=== PATIENT | male | born 1960 | race Caucasian/White ===

== ENCOUNTER 2019-09-30 15:22 | Emergency (ER) | payer BC ==
[~2019-09-30] VITALS: Ht 180.3 cm; Wt 101.2 kg
[2019-09-30 15:48] VITALS: BP 143/78
--- NOTE | 2019-09-30 16:14 | Emergency Department Note ---
History of Present Illnes History of Present Illness Chief Complaint: Hypertension History of Present Illness This is a 59 year old Other male arrives to the ED after he noticed blood pres sure was high at home. Patient denies any complaints and states his blood pressure fluctuates goes to the doctor's office but couldn't afford the ivf embryologist co-pay and decided to come to the ER. . Chief Complaint Comment STATES HE WENT TO PCP FOR LAB WORK BUT COULD NOT AFFORD THE LAB WORK; WENT HOME CHECKED BP AND SAYS IT WAS HIGH AND THAT HIS HR READ 170'S ON HIS MACHINE STATES MAYBE THE MACHINE IS OFF STATES HE DOES NOT FEEL BAD DENIES CP/SOB DENIES ALL OTHER COMPLAINTS TAKES BESYLATE 10 MG PO IN THE AM AND MEDOXIMIL 40 MG PO HS STATES HE TOOK BESYLATE TODAY STATES HE'S CUT DOWN ON SMOKING AND IS DOWN TO 1 PK/CIGARETTES/DAY AND STOPPED DRINKING SEEN BY DR PERAZA Historian: Patient Arrival Mode: Car Onset quality: sudden Progression: resolved Past Medical/Family History Physician Review I have reviewed the patient's past medical and family history. Any updates have been documented here. Past Medical History Recent Fever: No Clinical Suspicion of Infectio: No New/Unexplained Change in Ment: No Past Medical History: Hypertension Past Surgical History: None Social History Smoking Cessation: Current every day smoker Counseling Performed: No Alcohol Use: None Any Illegal Drug Use: No Physically hurt or threatened: No Other Any Pre-Existing Lines (PICC,: No Review of Systems Review of Systems Constitutional: Reports no symptoms EENTM: Reports no symptoms Cardiovascular: Reports no symptoms Respiratory: Reports no symptoms Gastrointestinal: Reports no symptoms Genitourinary: Reports no symptoms Musculoskeletal: Reports no symptoms Integumentary: Reports no symptoms Neurological: Reports no symptoms Psychological: Reports no symptoms Endocrine: Reports no symptoms Hematological/Lymphatic: Reports no symptoms Physical Exam Related Data Allergies: Coded Allergies: No Known Allergies (Verified , 05/28/09) Triage Vital Signs Vital Signs Date Time Temp Pulse Resp B/P (MAP) Pulse Ox O2 Delivery O2 Flow Rate FiO2 09/30/19 15:35 98.7 98 18 156/91 98 Room Air Vital signs reviewed: Yes Physical Exam CONSTITUTIONAL Constitutional: Present well-developed, Present well-nourished HENT HENT: Present normocephalic, Present atraumatic, Present oropharynx clear/moist, Present nose normal HENT L/R: Present left ext ear normal, Present right ext ear normal EYES Eyes: Reports PERRL, Reports conjunctivae normal NECK Neck: Present ROM normal PULMONARY Pulmonary: Present effort normal, Present breath sounds normal CARDIOVASCULAR Cardiovascular: Present regular rhythm, Present heart sounds normal, Present capillary refill normal, Present normal rate GASTROINTESTINAL Abdominal: Present soft, Present nontender, Present bowel sounds normal GENITOURINARY Genitourinary: Present exam deferred SKIN Skin: Present warm, Present dry MUSCULOSKELETAL Musculoskeletal: Present ROM normal NEUROLOGICAL Neurological: Present alert, Present oriented x 3, Present no gross motor or sensory deficits PSYCHOLOGICAL Psychological: Present mood/affect normal, Present judgement normal Assessment & Plan Medical Decision Making MDM 59-year-old male arrives to the ED for asymptomatic hypertension. Blood pressure checked twice in the ER with improvement noted. Spoke to patient at length following up with his physician for tighter blood pressure control. Patient has no complaints of chest pain shortness of breath or strokelike symptoms. Patient stable for discharge home. Assessment & Plan Final Impression: (1) Hypertension Depart Disposition: HOME, SELF-CARE Last Vital Signs Date Time Temp Pulse Resp B/P (MAP) Pulse Ox O2 Delivery O2 Flow Rate FiO2 09/30/19 15:35 98.7 98 18 156/91 98 Room Air JORGE PERAZA DO Sep 30, 2019 16:15
--- OUTSIDE RECORDS SUMMARY | 2019-09-30 16:55 | XMS REPORT | Continuity of Care Document ---
Author Author [facility] Organization [facility] Address [address] [place] [address] Phone Unavailable Care Team Providers Care Heddler Tier Name Role Phone Unavailable Unavailable Payers Payer Name Policy Type Policy Number Effective Date Expiration Date S ource Problems This patient has no known problems. Allergies, Adverse Reactions, Alerts Allergy Name Allergy Type Status Severity Reaction(s) Onset Date Inacti ve Date Treating Clinician Comments Source No Known Allergies DA Active U 2019-05-21 00:00:00 [facility] Medications This patient has no known medications. Procedures This patient has no known procedures. Results Test Description Test Time Test Comments Results Result Comments Source BASIC METABOLIC PANEL 2019-05-21 12:05:00 Test Item SODIUM (test code = NA) 138 mmol/L 135-148 N POTASSIUM (test code = K) 3.8 mmol/L 3.5-5.1 N CHLORIDE (test code = CL) 101 mmol/L 101-109 N CARBON DIOXIDE (test code = CO2) 26.2 mmol/L 21-32 N ANION GAP (test code = GAP) 15 mmol/L 10-20 N GLUCOSE (test code = GLU) 111 mg/dL 74-106 H BLOOD UREA NITROGEN (test code = BUN) 15 mg/dL 3-21 N GLOMERULAR FILTRATION RATE (test code = GFR) > 60 mL/min >=60 Estimated GFR by using Modified MDRD formula.Chronic kidney disease is defined as either kidney damageor GFR <60 mL/min/1.73 m2 for >3 months. CREATININE (test code = CREAT) 0.98 mg/dL 0.55-1.3 N BUN/CREATININE RATIO (test code = BUN/CREA) 15.3 10-20 N CALCIUM (test code = CA) 9.0 mg/dL 8.4-10.2 N
== END 2019-09-30 16:13 | disposition home or self-care (01) ==
LOC: ER 16:00
DX: I10 Essential (primary) hypertension (principal); F17.210 Nicotine dependence, cigarettes, uncomplicated
CPT/HCPCS: 99282